=== PATIENT | male | born 2000 | race Two or more races ===

== ENCOUNTER 2023-12-18 08:10 | Emergency (ER) | payer MEDICAID, OTHER ==
[~2023-12-18] VITALS: Ht 172.7 cm; Wt 72.6 kg
[2023-12-18] MEDS: TETANUS-DIPTH-ACEL PERTUSSIS 0.5ML SYR Tdap IM ONE (09:13)
[2023-12-18 09:16] VITALS: BP 136/92; PULSE 82; RESP 18; TEMP 98.6; O2SAT 97
== END 2023-12-18 09:50 | disposition home or self-care (01) ==
LOC: ER 08:10
DX: S81.831A Puncture wound without foreign body, right lower leg, initial encounter (principal); Z88.8 Allergy status to other drugs, medicaments and biological substances; W54.0XXA Bitten by dog, initial encounter; Y93.89 Activity, other specified; Y92.89 Other specified places as the place of occurrence of the external cause; Y99.0 Civilian activity done for income or pay
CPT/HCPCS: 90471; 90715